=== PATIENT | female | born 1990 | race Hispanic/Latino ===

== ENCOUNTER 2017-05-03 22:03 | Emergency (ER) | payer OTHER ==
[2017-05-03 22:29] VITALS: BP 126/89; PULSE 92; RESP 18; TEMP 98.3; O2SAT 100
[2017-05-03] MEDS ORDERED: Sodium Chloride 0.9% 1,000 ML IV STA (22:46)
--- NOTE | 2017-05-03 23:05 | ED PDOC ---
HPI: Abdomen Time Seen by Provider: 05/03/17 22:32 Chief Complaint (Nursing): Female Genitourinary Chief Complaint (Provider): L flank LLQ pain History Per: Patient History/Exam Limitations: no limitations Onset/Duration Of Symptoms: Other (Started 2 days ago, initially intermittent and now constant more sharp and radiating to L flank) Associated Symptoms: Chills, Nausea, Loss Of Appetite, Other (Bodyaches and malaise). denies: Fever, Vomiting, Diarrhea, Constipation, Urinary Symptoms Additional Complaint(s): LMP 11-25 which happened to be the first menses since mid March when she underwent D&C for termination of . Also reports that she took Plan B 2 days prior to arrival. Denies any vaginal bleeding or discharge. Has not taken anything for pain. PMD None Past Medical History Reviewed: Historical Data, Nursing Documentation, Vital Signs Vital Signs: Last Vital Signs Temp 98.3 F 05/03/17 22:24 Pulse 92 H 05/03/17 22:24 Resp 18 05/03/17 22:24 BP 126/89 05/03/17 22:24 Pulse Ox 100 05/04/17 05:11 - Medical History PMH: No Chronic Diseases, Hyperthyroidism (no longer on meds) - Surgical History Surgical History: No Surg Hx - Family History Family History: States: Hypertension, Other Other Family History: Lupus, kidney disease - Social History Current smoker - smoking cessation education provided: No Drugs: Denies - Immunization History Hx Pneumococcal Vaccination: Yes - Home Medications Home Medications: Ambulatory Orders Medication Instructions Recorded Nitrofurantoin Macrocrystals 100 mg PO BID #14 cap 11/16/14 [Macrobid] Naproxen [Naprosyn] 500 mg PO Q12 #14 tab 05/04/17 Nitrofurantoin Macrocrystals 100 mg PO BID #14 cap 05/04/17 [Macrobid] Docusate [Colace] 100 mg PO BID PRN #20 cap 05/06/17 - Allergies Allergies/Adverse Reactions: Allergies Allergy/AdvReac Type Severity Reaction Status Date / Time diphenhydramine AdvReac hallucinati Verified 05/05/17 23:26 [From Benadryl] ons Review of Systems ROS Statement: Except As Marked, All Systems Reviewed And Found Negative (and as per HPI) Constitutional: Positive for: Chills, Weakness, Malaise. Negative for: Fever Gastrointestinal: Positive for: Nausea, Abdominal Pain, Hematochezia. Negative for: Vomiting, Diarrhea, Constipation, Melena Genitourinary Female: Negative for: Dysuria, Frequency, Hematuria, Vaginal Discharge, Vaginal Bleeding, Pelvic Pain Musculoskeletal: Positive for: Back Pain Physical Exam - Reviewed Nursing Documentation Reviewed: Yes Vital Signs Reviewed: Yes - Physical Exam Appears: Positive for: Non-toxic, In Acute Distress Head Exam: Positive for: ATRAUMATIC, NORMOCEPHALIC Skin: Positive for: Warm, Dry Eye Exam: Positive for: EOMI, PERRL ENT: Negative for: Pharyngeal Erythema, Tonsillar Exudate Neck: Positive for: Painless ROM, Supple Cardiovascular/Chest: Positive for: Regular Rate, Rhythm, Chest Non Tender. Negative for: Murmur Respiratory: Positive for: Normal Breath Sounds. Negative for: Wheezing Gastrointestinal/Abdominal: Positive for: Bowel Sounds, Soft, Tenderness (L abdominal tenderness to deep palpation at level of umbilicus). Negative for: Mass, Distended, Guarding, Rebound Back: Positive for: L CVA Tenderness. Negative for: R CVA Tenderness Extremity: Positive for: Normal ROM. Negative for: Deformity Lymphatic: Negative for: Adenopathy Neurologic/Psych: Positive for: Alert. Negative for: Motor/Sensory Deficits - Laboratory Results Result Diagrams: 05/03/17 23:30 05/03/17 23:30 - ECG O2 Sat by Pulse Oximetry: 100 Disposition - Clinical Impression Clinical Impression: Ovarian cyst, UTI (urinary tract infection) - Disposition Disposition: Transfer of Care Disposition Time: 00:00 Condition: STABLE Prescriptions: Naproxen [Naprosyn] 500 mg PO Q12 #14 tab Nitrofurantoin Macrocrystals [Macrobid] 100 mg PO BID #14 cap Patient Signed Over To: Taras Davis Handoff Comments: Pending ER workup reassessment and final ER disposition
[2017-05-04 00:05] LABS: BASO # 0.1 K/uL (0.0-0.2); BASO % 0.6 % (0.0-2.0); EOS # 0.2 K/uL (0.0-0.7); EOS % 1.7 % (0.0-4.0); HEMATOCRIT 39.1 % (34.0-47.0); LYMPH # 2.8 K/uL (1.0-4.3); LYMPH % 26.3 % (20.0-40.0); MEAN CELL VOLUME 92.2 fl (81.0-99.0); MEAN CORPUSCULAR HEMOGLOBIN 30.5 pg (27.0-31.0); MEAN CORPUSCULAR HGB CONC 33.1 g/dL (33.0-37.0); MEAN PLATELET VOLUME 7.6 fl (7.2-11.7); MONO # 0.7 K/uL (0.0-0.8); MONO % 6.7 % (0.0-10.0); NEUT % 64.7 % (50.0-75.0); RED CELL DISTRIBUTION WIDTH 13.3 % (11.5-14.5); WHITE BLOOD COUNT 10.8 K/uL (4.8-10.8)
[2017-05-04 00:14] LABS: RBC URINE 4 /hpf (0-3); URINE BACTERIA FEW (<OCC); URINE BILIRUBIN NEGATIVE (NEGATIVE); URINE BLOOD SMALL (NEGATIVE); URINE COLOR YELLOW (YELLOW); URINE GLUCOSE (UA) NEG (Normal); URINE KETONE TRACE mg/dL (NEGATIVE); URINE LEUKOCYTE ESTERASE MOD Leu/uL (Negative); URINE PROTEIN NEGATIVE (NEGATIVE); URINE UROBILINOGEN 0.2-1.0 mg/dL (0.2-1.0); WBC URINE 46 /hpf (0-5)
[2017-05-04 00:17] LABS: ALB/GLOB RATIO 1.4 (1.0-2.1); ALKALINE PHOSPHATASE 44 U/L (38-126); ALT/SGPT 25 U/L (9-52); AST/SGOT 27 U/L (14-36); BILIRUBIN,TOTAL 0.4 mg/dl (0.2-1.3); BLOOD UREA NITROGEN 16 mg/dl (7-17); CALCIUM 9.1 mg/dL (8.4-10.2); CARBON DIOXIDE 26 mmol/L (22-30); CHLORIDE 101 mmol/L (98-107); GFR AFRICAN-AMERICAN > 60; GLUCOSE,RANDOM 92 mg/dL (65-105); SODIUM 137 mmol/l (132-148); TOTAL PROTEIN 8.2 G/DL (6.3-8.2)
--- NOTE | 2017-05-04 00:51 | ED PDOC ---
- Laboratory Results Result Diagrams: 05/03/17 23:30 05/03/17 23:30 - ECG O2 Sat by Pulse Oximetry: 100 Medical Decision Making Medical Decision Making: Time: 00:39 Patient signed out to me by Dr. Savana Garcia pending ultrasound and reevaluation. Labs reviewed sig for UA indicative for UTI CLINICAL HISTORY: 26 years old, female; Pain; Pelvic pain; Additional info: Left sided pain large ovarian finding R/O torsion TECHNIQUE: Real-time transvaginal pelvic ultrasound (complete) with image documentation. Transvaginal imaging was used for better evaluation of the endometrium and adnexa. COMPARISON: CT - ABD PELVIS W/O PO OR 2017-05-03 23:17 FINDINGS: Uterus/cervix: Unremarkable in echogenicity and size measuring 6.9 x 2.9 x 4.3 cm. Normal endometrial stripe thickness, measuring 3 mm. No myometrial mass. Right ovary: Unremarkable in echogenicity and size measuring 1.9 x 1.2 x 2.4 cm. No mass. Normal blood flow. Left ovary: Unremarkable in echogenicity and size measuring 2.1 x 1.6 x 1.7 cm. No solid mass. Normal blood flow. Adjacent to the left ovary, is a large, avascular, anechoic focus measuring 4.9 x 3.0 x 3.7 cm consistent with a paraovarian cyst. Free fluid: No free fluid. IMPRESSION: Left-sided paraovarian cyst measuring 4.9 cm in greatest dimension. This focus corresponds to the abnormality seen on CT examination, performed on the same day. Thank you for allowing us to participate in the care of your patient. Dictated and Authenticated by: Melida Connolly MD 05/04/2017 1:52 AM Eastern Time ([place] & [place]) Time: 2AM Patient reports significant improvement and is stable for discharge home Impression: Left Ovarian Cyst, UTI Plan: F/U [facility], RX Naprosyn/Macrobid Improved Reassess Scribe Attestation: Documented by Kostas Batres acting as a scribe for Tarsa Davis MD. Provider Attestation: All medical record entries made by the Scribe were at my direction and personally dictated by me. I have reviewed the chart and agree that the record accurately reflects my personal performance of the history, physical exam, medical decision making, and the department course for this patient. I have also personally directed, reviewed, and agree with the discharge instructions and disposition. Disposition - Clinical Impression Clinical Impression: Ovarian cyst, UTI (urinary tract infection) - POA Present On Arrival: None - Disposition Disposition: Routine/Home Disposition Time: 02:00 Condition: STABLE Prescriptions: Naproxen [Naprosyn] 500 mg PO Q12 #14 tab Nitrofurantoin Macrocrystals [Macrobid] 100 mg PO BID #14 cap Instructions: Ovarian Cyst (ED), Urinary Tract Infection in Children (ED) Forms: [employer] ([place])
--- NOTE | 2017-05-04 15:52 | CT ---
PROCEDURE: CT abdomen pelvis dated the 05/03/2017. HISTORY: Left flank pain COMPARISON: Comparison made with CT scan of the abdomen pelvis 11/16/2014. TECHNIQUE: Contiguous axial images of the abdomen and pelvis. Oral contrast was administered. No IV contrast given. Coronal and Sagittal reformats generated. Radiation dose: Total exam DLP = 554.42 mGy-cm. This CT exam was performed using one or more of the following dose reduction techniques: Automated exposure control, adjustment of the mA and/or kV according to patient size, and/or use of iterative reconstruction technique. FINDINGS: LOWER THORAX: Lung bases clear. No infiltrate effusion or basilar pneumothorax. Heart size within range of normal. No significant pericardial effusion. LIVER: Liver exhibits relatively normal size measuring approximately 17 cm in CC dimension. No gross hepatic mass or significant intrahepatic biliary ductal dilatation. GALLBLADDER AND BILE DUCTS: Unremarkable. PANCREAS: Unremarkable. No mass. No ductal dilatation. SPLEEN: Unremarkable. No splenomegaly. ADRENALS: Unremarkable. KIDNEYS AND URETERS: Unremarkable. No stone or hydronephrosis. BLADDER: Grossly unremarkable. REPRODUCTIVE: Re- demonstrated is a relatively large cystic focus within the left aspect of the pelvis of felt to arise from the left ovary measuring approximately 5 cm x 4 cm x 3.7 cm. Follow-up pelvic ultrasound could further evaluate this cystic lesion if necessary. . APPENDIX: Normal-appearing the debris and air filled appendix non without evidence to suggest acute appendicitis. BOWEL: Evaluation of the bowel is limited due to the lack of oral contrast material. . Stomach appears incompletely distended with some liquid food debris and air. Visualized loops of small bowel exhibit normal contour and caliber. No evidence of acute mechanical small bowel obstruction. Moderately large amount of stool seen within the cecum and at ascending colon consistent with mild fecal retention/constipation. PERITONEUM: Unremarkable. No fluid collection. No free air. LYMPH NODES: Unremarkable. No enlarged lymph nodes. VASCULATURE: Unremarkable. No aortic aneurysm. BONES: No fracture or destructive lesion. OTHER FINDINGS: None. IMPRESSION: Re- demonstrated is a large left-sided adnexal cyst as above which was present on prior CT scan of the abdomen and pelvis 11/16/2014. Findings suggest mild fecal retention/constipation.
--- NOTE | 2017-05-04 17:26 | US ---
HISTORY: LEFT sided pain large ovarian finding r/o torsion COMPARISON: None available. TECHNIQUE: Transvaginal sonographic evaluation of the pelvis performed. Comparison made with prior study dated 11/06/2014. FINDINGS: UTERUS: Uterus is anteverted measuring approximately 6.9 x 2.9 x 4.3 cm. Normal in size and appearance. No fibroid or other mass lesion seen. ENDOMETRIUM: Endometrial stripe measures approximately 3 mm in diameter. Unremarkable. CERVIX: No cervical abnormality identified. RIGHT OVARY: Right ovary measures approximately 1.9 x 1.2 x 2.4 cm. No solid mass. Normal flow. LEFT OVARY: Left ovary measures approximate 2.1 x 1.6 x 1.7 cm. No solid mass. Normal flow. . Re- demonstrated is a relatively large left paraovarian cyst that measures approximately 4.9 x 3.0 x 3.7 cm FREE FLUID: No significant free fluid noted. OTHER FINDINGS: None. IMPRESSION: Large left para ovarian cyst as above again noted.
== END 2017-05-04 02:30 | disposition home or self-care (01) ==
LOC: H.ER 22:03
DX: N39.0 Urinary tract infection, site not specified (principal); N83.202 Unspecified ovarian cyst, left side
CPT/HCPCS: 74176; 76830; 80053; 81003; 81025; 85025; 87040; 87086; 87181; 96374; 99283; J1885; J7040

== ENCOUNTER 2017-05-05 21:43 | Emergency (ER) | payer OTHER ==
[2017-05-05] MEDS ORDERED: Sodium Chloride 0.9% 1,000 ML IV STA (22:15)
[2017-05-05] MEDS ORDERED: cefTRIAXone IV 1 gm in Dextros 50 ML IVPB STA (22:15)
--- NOTE | 2017-05-05 22:29 | ED PDOC ---
HPI: Back Time Seen by Provider: 05/05/17 22:04 Chief Complaint (Nursing): Back Pain Chief Complaint (Provider): Left Flank Pain History Per: Patient History/Exam Limitations: no limitations Onset/Duration Of Symptoms: Days Current Symptoms Are (Timing): Still Present Quality Of Discomfort: "Pain" Previous Symptoms: Back Pain Additional Complaint(s): Elizabeth Arguello, a 26 year old female, with a past medical history of hyperthyroidsm presents to the ED complaining of left flank pain. As per patient, she was seen here in the ED 2 nights ago for left flank pain which she had been having for 5 days. She reports that she was diagnosed with a urine infection and left ovarian cyst. The patient states that she has been compliant with her antibiotics and naprosyn but feels as though she is getting worse. she reports that the pain still persists and is not associated with fever, chills and loss of appetite. Denies dysuria, frequency, hematuria, diarrhea and constipation. PMD: n/a Past Medical History Reviewed: Historical Data, Nursing Documentation, Vital Signs Vital Signs: Last Vital Signs Temp 99.1 F 05/05/17 21:47 Pulse 107 H 05/05/17 21:47 Resp 16 05/05/17 21:47 BP 132/87 05/05/17 21:47 Pulse Ox 97 05/05/17 21:47 - Medical History PMH: Hyperthyroidism (no longer on meds) - Surgical History Surgical History: No Surg Hx - Family History Family History: States: Unknown Family Hx, Hypertension Other Family History: Lupus, kidney disease - Immunization History Hx Pneumococcal Vaccination: Yes - Home Medications Home Medications: Ambulatory Orders Medication Instructions Recorded Nitrofurantoin Macrocrystals 100 mg PO BID #14 cap 11/16/14 [Macrobid] Naproxen [Naprosyn] 500 mg PO Q12 #14 tab 05/04/17 Nitrofurantoin Macrocrystals 100 mg PO BID #14 cap 05/04/17 [Macrobid] Docusate [Colace] 100 mg PO BID PRN #20 cap 05/06/17 - Allergies Allergies/Adverse Reactions: Allergies Allergy/AdvReac Type Severity Reaction Status Date / Time diphenhydramine AdvReac hallucinati Verified 05/05/17 23:26 [From Benadryl] ons Review of Systems ROS Statement: Except As Marked, All Systems Reviewed And Found Negative Constitutional: Positive for: Fever, Chills, Other (body aches) Gastrointestinal: Negative for: Diarrhea, Constipation Genitourinary Female: Negative for: Dysuria, Frequency, Hematuria Musculoskeletal: Positive for: Other (left flank pain) Physical Exam - Reviewed Nursing Documentation Reviewed: Yes Vital Signs Reviewed: Yes - Physical Exam Appears: Positive for: Non-toxic, In Acute Distress Head Exam: Positive for: ATRAUMATIC, NORMOCEPHALIC Skin: Positive for: Warm, Dry Eye Exam: Positive for: EOMI, PERRL ENT: Negative for: Pharyngeal Erythema, Tonsillar Exudate Neck: Positive for: Painless ROM, Supple Cardiovascular/Chest: Positive for: Regular Rate, Rhythm. Negative for: Murmur Respiratory: Positive for: Normal Breath Sounds. Negative for: Respiratory Distress Gastrointestinal/Abdominal: Positive for: Bowel Sounds, Soft, Tenderness (L midabdominal ttp). Negative for: Mass, Distended, Guarding, Rebound Back: Positive for: L CVA Tenderness. Negative for: Decreased ROM Extremity: Positive for: Normal ROM. Negative for: Deformity Lymphatic: Negative for: Adenopathy Neurologic/Psych: Positive for: Alert. Negative for: Aphasia - Laboratory Results Result Diagrams: 05/05/17 22:45 05/05/17 22:45 - ECG O2 Sat by Pulse Oximetry: 97 (RA) Pulse Ox Interpretation: Normal Medical Decision Making Medical Decision Makin Initial Impression 26 y/o female presenting with myalgia, UTI and left flank pain Differentials: pyelonephritis, dehydration, electrolyte abnormalities, viral illness Initial Plan: * VBG * CMP * Lipase * Upreg * Udip * CBC * NS 1000ml IV 1000mls/hr * Toradol 15mg IV * Tylenol 975mg PO * Blood culture * Urine Culture * Reevaluation Scribe Attestation Documented by Zahraa Ortega acting as a scribe for Savana Garcia MD. Provider Attestation All medical record entries made by the Scribe were at my direction and personally dictated by me. I have reviewed the chart and agree that the record accurately reflects my personal performance of the history, physical exam, medical decision making, and the department course for this patient. I have also personally directed, reviewed, and agree with the discharge instructions and disposition. Disposition - Clinical Impression Clinical Impression: Flank pain - Disposition Disposition: Transfer of Care Disposition Time: 00:00 Condition: STABLE Prescriptions: Docusate [Colace] 100 mg PO BID PRN #20 cap PRN Reason: Constipation Patient Signed Over To: Taras Davis Handoff Comments: Pending ER workup, reassessment and final ER disposition
[2017-05-05] MEDS ORDERED: cefTRIAXone IV 1 gm in Dextros 50 ML IVPB ONE (22:50)
[2017-05-05 22:54] LABS: BASO % 0.4 % (0.0-2.0); EOS # 0.2 K/uL (0.0-0.7); EOS % 1.8 % (0.0-4.0); HEMATOCRIT 39.2 % (34.0-47.0); LYMPH # 1.9 K/uL (1.0-4.3); LYMPH % 19.3 % (20.0-40.0); MEAN CORPUSCULAR HEMOGLOBIN 30.8 pg (27.0-31.0); MEAN CORPUSCULAR HGB CONC 33.1 g/dL (33.0-37.0); MONO % 9.9 % (0.0-10.0); NEUT # 6.8 K/uL (1.8-7.0); NEUT % 68.6 % (50.0-75.0); NRBC % 0.1 % (0.0-0.0); RED CELL DISTRIBUTION WIDTH 13.3 % (11.5-14.5); WHITE BLOOD COUNT 9.9 K/uL (4.8-10.8)
[2017-05-05 22:56] LABS: VENOUS BLOOD GAS BASE EXCESS 2.7 mmol/L (0.0-2.0); VENOUS BLOOD GAS PCO2 50 mmHg (40-60); VENOUS BLOOD PH 7.37 (7.32-7.43)
[2017-05-05 23:17] LABS: ALB/GLOB RATIO 1.3 (1.0-2.1); ALKALINE PHOSPHATASE 54 U/L (38-126); ALT/SGPT 29 U/L (9-52); AST/SGOT 26 U/L (14-36); BILIRUBIN,TOTAL 0.3 mg/dl (0.2-1.3); BLOOD UREA NITROGEN 10 mg/dl (7-17); CALCIUM 9.1 mg/dL (8.4-10.2); CARBON DIOXIDE 27 mmol/L (22-30); CHLORIDE 102 mmol/L (98-107); GFR AFRICAN-AMERICAN > 60; GLUCOSE,RANDOM 103 mg/dL (65-105); LIPASE 84 U/L (23-300); POTASSIUM 3.9 MMOL/L (3.6-5.0); SODIUM 140 mmol/l (132-148); TOTAL PROTEIN 8.3 G/DL (6.3-8.2)
[2017-05-06] MEDS ORDERED: Iohexol 240 (50 ml) PO ONE (00:02)
[2017-05-06] MEDS ORDERED: Iohexol 240 (50 ml) ONE (00:14)
--- NOTE | 2017-05-06 00:27 | ED PDOC ---
- Laboratory Results Result Diagrams: 05/05/17 22:45 05/05/17 22:45 - ECG O2 Sat by Pulse Oximetry: 97 (RA) Medical Decision Making Medical Decision Makin Patient signed out to me from Dr. Garcia pending CT and re-eval. 0110 CT FINDINGS ABDOMEN: Liver: Unremarkable. Gallbladder and bile ducts: The gallbladder is contracted. No calcified stones. No ductal dilation. Pancreas: Unremarkable. No ductal dilation. Spleen: Unremarkable. No splenomegaly. Adrenals: Unremarkable. No mass. Kidneys and ureters: Unremarkable. No obstructing stones. No hydronephrosis. Stomach and bowel: There is more than usual amount of stool in the colon. There is no bowel dilatation to suggest obstruction. Appendix: The appendix is not visualized with certainty. There is no andre pericecal inflammation or or pericecal fluid collection to suggest appendicitis. (Please note that acute appendicitis cannot be completely excluded without the visualization of a normal appendix). PELVIS: Bladder: Unremarkable. Reproductive: There is a 3.7 x 4.8 cm cystic structure in the left pelvic cavity , suggesting a left ovarian cyst. ABDOMEN and PELVIS: Intraperitoneal space: Unremarkable. No free air. No significant fluid collection. 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 Vasculature: Unremarkable. No abdominal aortic aneurysm. There is likely compression of the LEFT renal vein by the superior mesenteric artery and the aorta. Lymph nodes: Unremarkable. No enlarged lymph nodes. IMPRESSION: 1. There is a 3.7 x 4.8 cm cystic structure in the left pelvic cavity, suggesting a left ovarian cyst. This can be further evaluated with an ultrasound examination if indicated. 2. There is more than usual amount of stool in the colon. 3. There is likely compression of the LEFT renal vein by the superior mesenteric artery and the aorta. This may not be clinically significant. Recommend clinical correlation for the possibility of Nutcracker syndrome. 4. 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 0200 Reports improvement in symptoms and is stable for discharge. Dx: flank pain, constipation, UTI, ovarian cyst Condition: improved Scribe Attestation: Documented by Pamela Enriquez acting as a scribe for Taras Davis MD. Scribe Attestation: All medical record entries made by the Scribe were at my direction and personally dictated by me. I have reviewed the chart and agree that the record accurately reflects my personal performance of the history, physical exam, medical decision making, and the department course for this patient. I have also personally directed, reviewed, and agree with the discharge instructions and disposition. Disposition - Clinical Impression Clinical Impression: Flank pain, Constipation, Ovarian cyst - POA Present On Arrival: None - Disposition Disposition: Routine/Home Disposition Time: 02:00 Condition: STABLE Prescriptions: Docusate [Colace] 100 mg PO BID PRN #20 cap PRN Reason: Constipation
[2017-05-06 02:57] VITALS: BP 128/74; PULSE 84; RESP 18; TEMP 98.4
--- NOTE | 2017-05-06 10:01 | CT ---
PROCEDURE: CT Abdomen and Pelvis without intravenous contrast HISTORY: Left flank pain COMPARISON: None. TECHNIQUE: CT scan of the abdomen and pelvis was performed without administration of intravenous contrast. Oral contrast was administered. Coronal and sagittal reformatted images were obtained. Radiation dose: Total exam DLP = 523.24 mGy-cm. This CT exam was performed using one or more of the following dose reduction techniques: Automated exposure control, adjustment of the mA and/or kV according to patient size, and/or use of iterative reconstruction technique. FINDINGS: LOWER THORAX: There is minimal subsegmental atelectasis in the lung bases. LIVER: Normal in size. No gross lesion or ductal dilatation. GALLBLADDER AND BILE DUCTS: Contracted. PANCREAS: Normal in size. No gross lesion or ductal dilatation. SPLEEN: Normal in size. ADRENALS: No discrete nodule. KIDNEYS AND URETERS: Both kidneys are normal in size. There is mild fullness in the right collecting system. No nephrolithiasis. VASCULATURE: No aortic aneurysm. BOWEL: The small bowel loops are normal in caliber. There is moderate amount of stool in the colon. No bowel dilatation or obstruction. APPENDIX: Normal appendix. PERITONEUM: No free fluid. No free air. LYMPH NODES: No enlarged lymph nodes. BLADDER: Normal in appearance. REPRODUCTIVE: The uterus is normal in size. There is a 5.0 x 4.2 cm simple cyst in her left ovary. BONES: No acute fracture. 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 OTHER FINDINGS: None. IMPRESSION: 1. 5.2 cm simple cyst in the left ovary. Please correlate with ultrasound examination to evaluate for torsion. 2. Constipation. No evidence of bowel obstruction. 3. Mild fullness in the right collecting system. No nephrolithiasis, hydronephrosis or obstructive uropathy. 4. 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 A preliminary report was provided by [employer].
[2017-05-08 11:09] VITALS: O2SAT 97
== END 2017-05-06 02:40 | disposition home or self-care (01) ==
LOC: H.ER 21:43
DX: K59.00 Constipation, unspecified (principal); N83.202 Unspecified ovarian cyst, left side; R10.9 Unspecified abdominal pain; E05.90 Thyrotoxicosis, unspecified without thyrotoxic crisis or storm; N39.0 Urinary tract infection, site not specified
CPT/HCPCS: 74176; 80053; 81025; 82803; 83690; 85025; 87040; 96374; 99284; J0696; J1885; J7040; Q9966